=== PATIENT | male | born 1985 | race Caucasian/White ===

== ENCOUNTER 2019-11-22 22:32 | Emergency (ER) | payer SELFPAY ==
--- NOTE | 2019-11-22 23:02 | ER ---
Nurse's Notes [facility] Name: Caden Arteaga Jr Age: 34 yrs Sex: Male : 1985 Arrival Date: 11/22/2019 Time: 22:32 Bed 23 Private MD: Diagnosis: Gingivitis and periodontal diseases Presentation: 11/22 22:38 Presenting complaint: Patient states: My gum started swelling on the upper left side on jb4 . Today it is much worse and very painful. I am also a little dizzy but that comes and goes. 22:38 Transition of care: patient was not received from another setting of care. Onset of jb4 symptoms was November 16, 2019. Risk Assessment: Do you want to hurt yourself or someone else? Patient reports no desire to harm self or others. Initial Sepsis Screen: Does the patient meet any 2 criteria? No. Patient's initial sepsis screen is negative. Does the patient have a suspected source of infection? No. Patient's initial sepsis screen is negative. Care prior to arrival: None. 22:38 Method Of Arrival: Ambulatory jb4 22:38 Acuity: NIKI 4 jb4 Historical: - Allergies: 22:44 PENICILLINS; jb4 22:44 Cabbage (Brassica oleracea); jb4 - Home Meds: 22:44 None [Active]; jb4 - PMHx: 22:44 None; jb4 - PSHx: 22:44 None; jb4 - Immunization history:: Adult Immunizations not up to date. - Social history:: Smoking status: Patient reports the use of cigarette tobacco products, smokes one pack cigarettes per day. Patient uses alcohol, occasionally. street drugs, marijuana. - Ebola Screening: : No symptoms or risks identified at this time. Screenin:47 Abuse screen: Denies threats or abuse. Nutritional screening: No deficits noted. jb4 Tuberculosis screening: No symptoms or risk factors identified. Fall Risk None identified. Assessment: 22:47 General: Appears in no apparent distress. uncomfortable, Behavior is calm, cooperative, jb4 appropriate for age. Pain: Complains of pain in left buccal mucosa Pain does not radiate. Pain currently is 10 out of 10 on a pain scale. Neuro: Level of Consciousness is awake, alert, obeys commands, Oriented to person, place, time, situation. Cardiovascular: Patient's skin is warm and dry. Respiratory: Airway is patent Respiratory effort is even, unlabored, Respiratory pattern is regular, symmetrical. GI: No signs and/or symptoms were reported involving the gastrointestinal system. : No signs and/or symptoms were reported regarding the genitourinary system. EENT: No signs and/or symptoms were reported regarding the EENT system. Derm: Skin is intact, Skin is pink, warm \T\ dry. Musculoskeletal: Circulation, motion, and sensation intact. Range of motion: intact in all extremities. Vital Signs: 22:44 BP 128 / 87; Pulse 80; Resp 16; Temp 97.4; Pulse Ox 97% on R/A; Weight 79.38 kg (R); jb4 Height 5 ft. 10 in. (177.80 cm) (R); Pain 10/10; 22:44 Body Mass Index 25.11 (79.38 kg, 177.80 cm) jb4 ED Course: 22:32 Patient arrived in ED. ag3 22:35 Hiren Hammonds RN is Primary Nurse. jb4 22:37 Giorgi Jung MD is Attending Physician. tw4 22:44 Triage completed. jb4 22:44 Arm band placed on left wrist. jb4 22:47 Patient has correct armband on for positive identification. Bed in low position. Call jb4 light in reach. Side rails up X 1. Pulse ox on. Sitter at bedside. 22:47 No provider procedures requiring assistance completed. Patient did not have IV access jb4 during this emergency room visit. Administered Medications: No medications were administered Outcome: 22:47 Medical screen evaluation completed per provider. 4 22:47 Condition: stable 22:47 Following a medical screening exam, the patient was provided information regarding alternative care sites and resources available per registration personnel. 23:01 Discharge ordered by . tw4 23:02 Patient left the ED. mw2 Signatures: Hiren Hammonds, VANESSA RN [facility] Giorgi Jung MD MD 4 Beni Blackwood 2 Nicole Mathews 3
[2019-11-23 04:49] VITALS: BP 128/87; TEMP 97.4; O2SAT 97
--- NOTE | 2019-11-23 23:02 | EDPHYS ---
Physician Documentation [facility] Name: Caden Arteaga Jr Age: 34 yrs Sex: Male : 1985 Arrival Date: 11/22/2019 Time: 22:32 Bed 23 Private MD: ED Physician Giorgi Jung HPI: 11/22 23:02 This 34 yrs old Male presents to ER via Ambulatory with complaints of SWOLLEN tw4 GUMS. 23:02 The patient presents with redness. The problem is located in the upper left second tw4 molar and upper left third molar. Onset: The symptoms/episode began/occurred today. Duration: The symptoms are continuous, and are unchanged since they started. Modifying factors: The symptoms are alleviated by nothing, the symptoms are aggravated by nothing. The patient has not experienced similar symptoms in the past. Historical: - Allergies: 22:44 PENICILLINS; jb4 22:44 Cabbage (Brassica oleracea); jb4 - Home Meds: 22:44 None [Active]; jb4 - PMHx: 22:44 None; jb4 - PSHx: 22:44 None; jb4 - Immunization history:: Adult Immunizations not up to date. - Social history:: Smoking status: Patient reports the use of cigarette tobacco products, smokes one pack cigarettes per day. Patient uses alcohol, occasionally. street drugs, marijuana. - Ebola Screening: : No symptoms or risks identified at this time. ROS: 23:02 Constitutional: Negative for fever, chills, and weight loss, Eyes: Negative for injury, tw4 pain, redness, and discharge, Cardiovascular: Negative for chest pain, palpitations, and edema, Respiratory: Negative for shortness of breath, cough, wheezing, and pleuritic chest pain, Abdomen/GI: Negative for abdominal pain, nausea, vomiting, diarrhea, and constipation. 23:02 ENT: Positive for Gum pain Exam: 23:02 Constitutional: This is a well developed, well nourished patient who is awake, alert, tw4 and in no acute distress. Head/Face: Normocephalic, atraumatic. Eyes: Pupils equal round and reactive to light, extra-ocular motions intact. Lids and lashes normal. Conjunctiva and sclera are non-icteric and not injected. Cornea within normal limits. Periorbital areas with no swelling, redness, or edema. Cardiovascular: Regular rate and rhythm with a normal S1 and S2. No gallops, murmurs, or rubs. Normal PMI, no JVD. No pulse deficits. Respiratory: Lungs have equal breath sounds bilaterally, clear to auscultation and percussion. No rales, rhonchi or wheezes noted. No increased work of breathing, no retractions or nasal flaring. Abdomen/GI: Soft, non-tender, with normal bowel sounds. No distension or tympany. No guarding or rebound. No evidence of tenderness throughout. 23:02 ENT: Mouth: Gums: reddened, swollen, on the left buccal mucosa. Vital Signs: 22:44 BP 128 / 87; Pulse 80; Resp 16; Temp 97.4; Pulse Ox 97% on R/A; Weight 79.38 kg (R); jb4 Height 5 ft. 10 in. (177.80 cm) (R); Pain 10/10; 22:44 Body Mass Index 25.11 (79.38 kg, 177.80 cm) jb4 MDM: 22:59 Patient medically screened. tw4 23:06 Differential diagnosis: dental caries, gingivitis. Data reviewed: vital signs, nurses tw4 notes. Counseling: I had a detailed discussion with the patient and/or guardian regarding: the historical points, exam findings, and any diagnostic results supporting the discharge/admit diagnosis. Medical screen evaluation [facility]. [facility]. Administered Medications: No medications were administered Disposition: 11/22/19 23:01 Discharged to Home. Impression: Gingivitis and periodontal diseases. - Condition is Stable. - Medication Reconciliation Form, Thank You Letter, Antibiotic Education, Prescription Opioid Use form. - Follow up: Private Physician; When: Upon discharge from the Emergency Department; Reason: Recheck today's complaints, Continuance of care. - Problem is new. - Symptoms have improved. Signatures: Hiren Hammonds RN RN jb4 Giorgi Jung MD MD tw4 Beni Blackwood mw2 Corrections: (The following items were deleted from the chart) 23:02 23:01 11/22/2019 23:01 Discharged to Home. Impression: Gingivitis and periodontal mw2 diseases. Condition is Stable. Forms are Medication Reconciliation Form, Thank You Letter, Antibiotic Education, Prescription Opioid Use. Follow up: Private Physician; When: Upon discharge from the Emergency Department; Reason: Recheck today's complaints, Continuance of care. Problem is new. Symptoms have improved. tw4
== END 2019-11-22 23:02 | disposition home or self-care (01) ==
LOC: ER 22:32
DX: K05.10 Chronic gingivitis, plaque induced (principal); K05.6 Periodontal disease, unspecified; F17.210 Nicotine dependence, cigarettes, uncomplicated; Z88.0 Allergy status to penicillin; Z91.018 Allergy to other foods
CPT/HCPCS: 99284

== ENCOUNTER 2023-04-12 07:00 | Emergency (ER) | payer SELFPAY ==
--- OUTSIDE RECORDS SUMMARY | 2023-04-12 07:03 | XMS REPORT | Continuity of Care Document ---
:1985 Author Organization [facility] t Address [address] [place] [address] [address] [place] [address] Care Team Providers Name Role Phone Pcp, Patient Does Not Have A Primary Care Physician +[id number] KIRTI MORRIS Attending Clinician Unavailable Kirti Morris DO Attending Clinician TORIBIO Attending Clinician Unavailable Kameron Armstrong Attending Clinician Kameron JOHNSON Attending Clinician Unavailable TORIBIO Admitting Clinician Unavailable Problems Condition Condition Condition Status Onset Resolution Last Treating Co mments Source Name Details Category Date Date Treatment Clinician Date Bipolar Bipolar Disease Active Univers affect, affect, ity of depressed depressed [facility] Allergies, Adverse Reactions, Alerts Allergy Allergy Status Severity Reaction(s) Onset Inactive Treating Comm ents Source Name Type Date Date Clinician Penicill Propensi Active Hives Univer s ins ty to 07-09 ity of adverse 00:00: [place] reaction 00 Medical s Branch PENICILL Drug Active Hives Univers INS Class 07-09 ity of 00:00: [place] 00 Medical Branch Penicill Propensi Active Hives Univer s ins ty to 07-09 ity of adverse 00:00: [place] reaction 00 Medical s Branch Aspirin Propensi Active Other - See Severe Un ab ty to comments 11-06 nose ity of adverse 00:00: bleeds. [place] reaction Medical s Branch ASPIRIN DRUG Active Other-Cmnt Unive rs INGREDI 11-06 ity of 00:00: [place] 00 Medical Branch Social History Social Habit Start Date Stop Date Quantity Comments Source Exposure to Not sure [facility] SARS-CoV-2 (event) Medica l [place] Sex Assigned At [birth year] [facility] 00:00:00 00:00:00 Medical Branch Smoking Status Start Date Stop Date Source Tobacco smoking consumption [facility] Medical unknown Branch Medications Ordered Filled Start Stop Current Ordering Indication Dosage Frequency Signature Comments Components Source Medication Medication Date Date Medication? Clinician (SIG) Name Name ketorolac No 30mg 30 mg, Unive rs (TORADOL) 04-11 Slow IV ity of injection 13:30: 12:53 Push, [place] 30 mg 00 :00 ONCE, 1 Medical dose, On Branch [place] 04/11/23 at 0830, Routine NaCl 0.9% No 1000mL at 999 Uni vers (NS) bolus 04-11 mL/hr, ity of infusion 13:30: 14:43 1,000 mL, [place] as 1,000 mL 00 :00 IV Medical Infusion, [place] ONCE, 1 dose, On [place] 04/11/23 at 0830, MARSHA diphenhydrA No 25mg 25 mg, Uni vers MINE 04-11 Slow IV ity of (BENADRYL) 12:45: 12:53 Push, [place] injection 00 :00 ONCE, 1 Medical 25 mg dose, On Branch [place] 04/11/23 at 0745, STAT metoclopram No 10mg 10 mg, Uni vers eulalia HCl 04-11 Slow IV ity of (REGLAN) 12:45: 12:53 [place], [place] injection 00 :00 ONCE, 1 Medical 10 mg dose, On Branch [place] 04/11/23 at 0745, MARSHA clindamycin No 900mg 900 mg, IV Univers (CLEOCIN) 04-19 Piggyback, ity of injection 02:45: 01:47 ONCE, 1 [place] 900 mg 00 :00 dose, [place] Medical 04/18/20 at Branch 2145, MARSHA
Re ason for Anti-Infec tive: Documented Infection< br>Documen huy Infection Site: Skin / Soft Tissue
Duration of Therapy: 10 days
Re stricted use approved by: [employer] PROVIDER mupirocin 2 2019-0 Yes [id number] Apply to Univers % ointment 6-18 affected ity o f 00:00: areas BID. [place] 00 Also apply Medical to inside Branch of each nare twice daily x 5 days. mupirocin 2 2019-0 Yes [id number] Apply to Univers % ointment 6-18 affected ity o f 00:00: areas BID. [place] 00 Also apply Medical to inside Branch of each nare twice daily x 5 days. clindamycin 2020- No [id number] 300mg Take 2 Univers 150 mg 18 -29 capsules ity of capsule 00:00: 04:59 by mouth 4 [place] as 00 :00 (four) Medical times Branch daily for 10 days. cyclobenzap Yes 10mg Take 1 Univ ers rine 10 mg 5-02 tablet by ity of tablet 00:00: mouth 3 00 (three) Medical times Branch daily. ibuprofen Yes 600mg Take 1 Unive rs 600 mg 5-02 tablet by ity of tablet 00:00: mouth [place] 00 every 6 Medical (six) Branch hours as needed for Pain (scale 4-6). cyclobenzap Yes 10mg Take 1 Univ ers rine 10 mg 5-02 tablet by ity of tablet 00:00: mouth 3 00 (three) Medical times Branch daily. ibuprofen Yes 600mg Take 1 Unive rs 600 mg 5-02 tablet by ity of tablet 00:00: mouth [place] 00 every 6 Medical (six) Branch hours as needed for Pain (scale 4-6). sulfamethox 2016-11 Yes 1{tbl} Take 1 Un ab azole-trime 1-19 tablet by ity of thoprim 00:00: mouth [place] 800-160 mg 00 every 12 Medic al per tablet (twelve) Branc h hours. traMADOL 2016-11 Yes 50mg Take 1 Univers (ULTRAM) 50 1-19 tablet by ity of mg tablet 00:00: mouth [place] 00 every 6 Medical (six) Branch hours as needed for Pain (scale 4-6). sulfamethox 2016-11 Yes 1{tbl} Take 1 Un ab azole-trime 1-19 tablet by ity of thoprim 00:00: mouth [place] 800-160 mg 00 every 12 Medic al per tablet (twelve) Branc h hours. traMADOL 2016-11 Yes 50mg Take 1 Univers (ULTRAM) 50 1-19 tablet by ity of mg tablet 00:00: mouth [place] 00 every 6 Medical (six) Branch hours as needed for Pain (scale 4-6). famotidine Yes 40mg Take 1 Unive rs (PEPCID) 40 9-16 tablet by [place]y of mg tablet 00:00: [place] 00 bedtime. Medical Branch famotidine Yes 40mg Take 1 Unive rs (PEPCID) 40 9-16 tablet by ity of mg tablet 00:00: [place] 00 bedtime. Medical Branch Vital Signs Vital Name Observation Time Observation Value Comments Source Systolic blood 2023-04-11 14:40:00 119 mm[Hg] Univer sity [facility] Diastolic blood 2023-04-11 14:40:00 74 mm[Hg] Unive rsity [facility] Heart rate 2023-04-11 14:40:00 90 /min [facility] Respiratory rate 2023-04-11 14:40:00 16 /min [facility] Oxygen saturation in 2023-04-11 14:40:00 92 /min [facility] Arterial blood by [facility] Pulse oximetry Branch Body temperature 2023-04-11 12:37:00 37.61 Flavia [facility] Body height 2023-04-11 12:37:00 177.8 cm [facility] Body weight 2023-04-11 12:37:00 65.772 kg [facility] BMI 2023-04-11 12:37:00 20.81 kg/m2 [facility] Systolic blood 2020-04-19 01:10:00 136 mm[Hg] Univer sity [facility] Diastolic blood 2020-04-19 01:10:00 80 mm[Hg] Unive rsity of [facility] Heart rate 2020-04-19 01:10:00 79 /min [facility] Body temperature 2020-04-19 01:10:00 36.61 Flavia [facility] Oxygen saturation in 2020-04-19 01:10:00 98 /min [facility] Arterial blood by [facility] Pulse oximetry Branch Respiratory rate 2020-04-19 01:04:00 20 /min [facility] Body height 2020-04-19 01:04:00 177.8 cm [facility] Body weight 2020-04-19 01:04:00 74.844 kg [facility] BMI 2020-04-19 01:04:00 23.68 kg/m2 [facility] Procedures Procedure Date / Time Performed Performing Clinician Sour e CONSENT/REFUSAL FOR 2023-04-11 12:35:43 Doctor Unassigned, No Un [facility] DIAGNOSIS AND Name [facility] TREATMENT Encounters Start End Encounter Admission Attending Care Care Encounter Source Date/Time Date/Time Type Type Clinicians Facility Department ID 2023-04-11 2023-04-11 Emergency X ARTURO [facility] ERT [id number] Univers 07:38:00 09:43:00 KIRTI patricia [facility] 2023-04-11 2023-04-[address] [facility] [id number] Univers 07:38:00 09:43:00 Kirti [id number] [id number] [facility] [id number] [address] 2022-05-12 2022-05-12 Outpatient [place] [id number] [place] 04:30:00 04:30:00 HANA [id number] da [facility] 2020-04-18 2020-04-18 Emergency Kameron Johnson MTSHAHEEN [id number] Univers 20:06:28 21:36:00 Bibiana Mcdonough [id number] i ty [facility] [id number] [facility] [id number] [address] 2020-04-18 2020-04-18 Emergency X Kameron JOHNSON [facility] ERT [id number] Univers 20:06:28 20:06:28 ity [facility] Results This patient has no known results.
[2023-04-12] MEDS ORDERED: METOCLOPRAMIDE 10 MG/2mL INJ ONE (07:24)
[2023-04-12] MEDS ORDERED: Ringers Lactate 1,000 ML IV ONE (07:24)
[2023-04-12] MEDS ORDERED: dexAMETHasone 10 MG/ML VIAL ONE (07:25)
[2023-04-12] MEDS ORDERED: DIPHENHYDRAMINE 50 MG/ML VIAL ONE (07:25)
[2023-04-12] MEDS ORDERED: KETOROLAC 30 MG/ML INJ ONE (07:27)
[2023-04-12 08:43] LABS: SARS-CoV-2 Antigen Rapid Res Negative (Negative)
--- NOTE | 2023-04-12 08:59 | EDPHYS ---
Physician Documentation [facility] Name: Caden Arteaga Jr Age: 37 yrs Sex: Male : 1985 Arrival Date: 04/12/2023 Time: 07:00 Bed 12 Private MD: ED Physician Hoang Escalante HPI: 04/12 07:12 This 37 yrs old Male presents to ER via Ambulatory with complaints of Vomiting, ms3 Migraine. 07:12 37-year-old male with no past medical history presents for migraine that began on ms3 Wednesday. Patient states he was seen at [facility] on April [address] of his head was performed and IV medications were given. Patient states that the pain is a 10/10 located in bilateral temples. Patient endorses nausea and vomiting. Patient states headache is worse with coughing. Patient denies alleviating factors.. Historical: - Allergies: 07:08 Cabbage (Brassica oleracea); jl7 07:08 PENICILLINS; jl7 - Home Meds: 07:08 None [Active]; jl7 - PMHx: 07:08 None; jl7 - PSHx: 07:08 None; jl7 - Immunization history:: Adult Immunizations unknown. - Social history:: Smoking status: Patient reports the use of cigarette tobacco products. ROS: 07:12 Constitutional: Negative for fever, and chills. Neck: Negative for injury, pain, and ms3 swelling, Cardiovascular: Negative for chest pain, and palpitations. Respiratory: Negative for shortness of breath, cough, wheezing, and pleuritic chest pain, Abdomen/GI: Negative for abdominal pain, nausea, vomiting, diarrhea, and constipation, MS/Extremity: Negative for injury and deformity, Skin: Negative for injury, rash, and discoloration. 07:12 Neuro: Positive for headache. 07:12 All other systems are negative. Exam: 07:12 Constitutional: This is a well developed, well nourished patient who is awake, alert, ms3 and in no acute distress. Head/Face: Normocephalic, atraumatic. ENT: Nares patent. No nasal discharge, no septal abnormalities noted. Tympanic membranes are normal and external auditory canals are clear. Oropharynx with no redness, swelling, or masses, exudates, or evidence of obstruction, uvula midline. Mucous membranes moist. Neck: Trachea midline, no cervical lymphadenopathy. Supple, full range of motion without nuchal rigidity, or vertebral point tenderness. No Meningismus. Chest/axilla: Normal chest wall appearance and motion. Nontender with no deformity. Cardiovascular: Regular rate and rhythm with a normal S1 and S2. No gallops, murmurs, or rubs. Normal PMI, no JVD. No pulse deficits. Respiratory: Lungs have equal breath sounds bilaterally, clear to auscultation and percussion. No rales, rhonchi or wheezes noted. No increased work of breathing, no retractions or nasal flaring. Abdomen/GI: Soft, non-tender, with normal bowel sounds. No distension or tympany. No guarding or rebound. No evidence of tenderness throughout. Skin: Warm, dry with normal turgor. Normal color with no rashes, no lesions, and no evidence of cellulitis. MS/ Extremity: Pulses equal, no cyanosis. Neurovascular intact. Full, normal range of motion. 07:12 Neuro: Orientation: to person, place, time \T\ situation. Mentation: is normal, Memory: is normal, Cranial nerves: CN I not tested, CN II- XII are normal as tested, Cerebellar function: is grossly normal, Motor: is normal, Sensation: no obvious gross deficits, Gait: is steady, at a normal pace, without difficulty. Vital Signs: 07:04 BP 140 / 87; Pulse 106; Resp 15; Temp 97.9; Pulse Ox 96% ; Pain 10/10; jl7 09:07 BP 123 / 78; Pulse 99; Resp 16; Pulse Ox 95% on R/A; eh3 07:04 Pain Scale: Adult jl7 MDM: 07:08 Patient medically screened. ms3 07:12 Differential diagnosis: Migraine vs Dehydration vs Tension Headache vs COVID. ms3 08:58 Data reviewed: vital signs, nurses notes, lab test result(s), and as a result, I will ms3 discharge patient. I considered the following discharge prescriptions or medication management in the emergency department Medications were administered in the Emergency Department. See MAR. External Records Reviewed: Outside ED record: [facility] Anika from 04/11/[address] Head without contrast performed, Reglan, Toradol, and Benadryl given.. Counseling: I had a detailed discussion with the patient and/or guardian regarding: the historical points, exam findings, and any diagnostic results supporting the discharge/admit diagnosis, lab results, the need for outpatient follow up, to return to the emergency department if symptoms worsen or persist or if there are any questions or concerns that arise at home. Response to treatment: the patient's symptoms have markedly improved after treatment, and as a result, I will discharge patient. Special discussion: I discussed with the patient/guardian in detail that at this point there is no indication for admission to the hospital. It is understood, however, that if the symptoms persist or worsen the patient needs to return immediately for re-evaluation. ED course: On reevaluation patient is alert and oriented x4, no apparent distress, nontoxic-appearing, neurologically intact. Patient to follow-up with Dr. Guzman in 2 to 3 days. Patient understands and agrees with plan. All questions were answered. Return precautions discussed include worsening symptoms, or any other concerns.. 04/12 08:11 Order name: SARS-COV-2 Antigen Rapid; Complete Time: 08:45 bd Administered Medications: 07:36 Drug: metoCLOPramide IVP 10 mg Route: IVP; Site: right forearm; jl7 07:36 Drug: diphenhydrAMINE IVP 25 mg Route: IVP; Site: right forearm; jl7 07:36 Drug: Decadron - Dexamethasone IVP 10 mg Route: IVP; Site: right forearm; jl7 07:36 Drug: Lactated Ringers Solution IV 1000 ml Route: IV; Rate: bolus; Site: right forearm; jl7 07:36 Drug: Ketorolac IVP 10 mg 10 mg Route: IVP; Site: right forearm; jl7 Disposition Summary: 04/12/23 08:57 Discharge Ordered Location: Home ms3 Condition: Stable ms3 Diagnosis - Headache ms3 Followup: ms3 - With: Jewel Guzman MD - When: 2 - 3 days - Reason: Recheck today's complaints Discharge Instructions: - Discharge Summary Sheet ms3 - General Headache Without Cause ms3 Forms: - Medication Reconciliation Form ms3 - Thank You Letter ms3 - Antibiotic Education ms3 - Prescription Opioid Use ms3 - Work release form eh3 Prescriptions: - Fioricet 50-300-40 mg Oral capsule - take 1 capsule by ORAL route every 6 hours as needed for pain; 15 capsule; ms3 Refills: 0, Product Selection Permitted Signatures: Dispatcher [employer] Vaishnavi Darling, RN RN jl7 Hoang Escalante DO DO ms3 Corrections: (The following items were deleted from the chart) 08:30 07:17 SARS-COV-2 RT PCR+[id number] ordered. NICOLETTE EDMS
--- NOTE | 2023-04-12 08:59 | ER ---
Nurse's Notes [facility] Name: Caden Arteaga Jr Age: 37 yrs Sex: Male : 1985 Arrival Date: 04/12/2023 Time: 07:00 Bed 12 Private MD: Diagnosis: Headache Presentation: 04/12 07:04 Chief complaint: Patient states: Migraine x 3 days, N/V, seen at [place] [address] scan. Coronavirus screen: At this time, the client does not indicate any symptoms associated with coronavirus-19. Ebola Screen: No symptoms or risks identified at this time. Initial Sepsis Screen: Does the patient meet any 2 criteria? No. Patient's initial sepsis screen is negative. Does the patient have a suspected source of infection? No. Patient's initial sepsis screen is negative. Risk Assessment: Do you want to hurt yourself or someone else? Patient reports no desire to harm self or others. Onset of symptoms was April 09, 2023. 07:04 Method Of Arrival: Ambulatory [facility] 07:04 Acuity: NIKI 3 7 Triage Assessment: 07:08 General: Appears in no apparent distress. uncomfortable, Behavior is calm, cooperative, jl7 appropriate for age. Pain: Complains of pain in right confucianist and left confucianist Pain currently is 10 out of 10 on a pain scale. GI: Reports nausea, vomiting. Historical: - Allergies: 07:08 Cabbage (Brassica oleracea); jl7 07:08 PENICILLINS; 7 - Home Meds: 07:08 None [Active]; jl7 - PMHx: 07:08 None; 7 - PSHx: 07:08 None; jl7 - Immunization history:: Adult Immunizations unknown. - Social history:: Smoking status: Patient reports the use of cigarette tobacco products. Screenin:07 [facility] ED Fall Risk Assessment (Adult) Score/Fall Risk Level 0 - 2 = Low Risk. Abuse eh3 screen: Denies threats or abuse. Denies injuries from another. Nutritional screening: No deficits noted. Tuberculosis screening: No symptoms or risk factors identified. Vital Signs: 07:04 BP 140 / 87; Pulse 106; Resp 15; Temp 97.9; Pulse Ox 96% ; Pain 10/10; jl7 09:07 BP 123 / 78; Pulse 99; Resp 16; Pulse Ox 95% on R/A; eh3 07:04 Pain Scale: Adult jl7 ED Course: 07:02 Patient arrived in ED. rg4 07:04 Hoang Escalante DO is Attending Physician. ms3 07:08 Triage completed. jl7 07:08 Arm band placed on. jl7 07:14 Vaishnavi Shirley, RN is Primary Nurse. jl7 07:32 Missed attempt(s): 20 gauge in right forearm. Bleeding controlled, band aid applied, jl7 catheter tip intact. 07:35 Inserted saline lock: 22 gauge in right forearm, using aseptic technique. jl7 08:57 Jewel Guzman MD is Referral Physician. ms3 09:08 Patient has correct armband on for positive identification. eh3 09:08 No provider procedures requiring assistance completed. IV discontinued, intact, eh3 bleeding controlled, No redness/swelling at site. Pressure dressing applied. Administered Medications: 07:36 Drug: metoCLOPramide IVP 10 mg Route: IVP; Site: right forearm; jl7 07:36 Drug: diphenhydrAMINE IVP 25 mg Route: IVP; Site: right forearm; jl7 07:36 Drug: Decadron - Dexamethasone IVP 10 mg Route: IVP; Site: right forearm; jl7 07:36 Drug: Lactated Ringers Solution IV 1000 ml Route: IV; Rate: bolus; Site: right forearm; jl7 07:36 Drug: Ketorolac IVP 10 mg 10 mg Route: IVP; Site: right forearm; jl7 Medication: 09:08 VIS not applicable for this client. 3 Outcome: 08:57 Discharge ordered by . ms3 09:08 Discharged to home ambulatory. eh3 09:08 Condition: stable 09:08 Discharge instructions given to patient, Instructed on discharge instructions, follow up and referral plans. medication usage, Demonstrated understanding of instructions, follow-up care, medications, Prescriptions given X 1. 09:11 Patient left the ED. eh3 Signatures: Aubree Centeno rg4 Vaishnavi Shirley, VANESSA RN jl7 Hoang Escalante DO DO ms3 Irene Hernandes RN RN eh3 Corrections: (The following items were deleted from the chart) 07:37 07:36 Decadron - Dexamethasone IVP 10 mg IVP in left antecubital jl7 jl7 07:37 07:36 Ketorolac IVP 10 mg 10 mg IVP in left forearm [facility] jl7 07:38 07:36 diphenhydrAMINE IVP 25 mg IVP in left forearm [facility] 07:38 07:36 metoCLOPramide IVP 10 mg IVP in left forearm [facility] jl7
[2023-04-12 09:26] VITALS: TEMP 97.9
[2023-04-12 09:32] VITALS: BP 123/78; O2SAT 95
== END 2023-04-12 09:11 | disposition home or self-care (01) ==
LOC: ER 07:00
DX: R51.9 Headache, unspecified (principal); R11.2 Nausea with vomiting, unspecified
CPT/HCPCS: 36415; 87811; 96374; 96375; 99284; J1100; J1200; J2765; J7120

== ENCOUNTER → 2023-11-22 | Emergency (ER) | payer OTHER, SELFPAY ==
[~2023-11-22] MED LIST: KETOROLAC 30 MG/ML INJ ONE
--- OUTSIDE RECORDS SUMMARY | 2023-11-22 09:10 | XMS REPORT | Continuity of Care Document ---
Author Name Unknown Address [address] [place] [address] [facility] thconnect Address [address] [place] [address] Care Team Providers Care Product Technology Scientist Name Role Phone PCP, PATIENT DOES NOT HAVE A Primary Care Physic tavon Unavailable DAPHNEY PENA Attending Clinician Unavailable Kirti Morris DO Attending Clinician [phone] KIRTI MORRIS Attending Clinician Unavailab shahida ROONEY Attending Clinician Unavailable Kameron Armstrong Attending Clinician Kameron JOHNSON Attending Clinician Unavailable DAPHNEY PENA Admitting Clinician Unavailable KIRTI MORRIS Admitting Clinician Unavailab shahida ROONEY Admitting Clinician Unavailable Problems Condition Name Condition Details Condition Category Status Onset Date Resolution Date Last Treatment Date Treating Clinician Comments Source Bipolar affect, depressed Bipolar affect, depressed Disease Active [facility] Allergies, Adverse Reactions, Alerts Allergy Name Allergy Type Status Severity Reaction(s) Onset Date Inactive Date Treating Clinician Comments Source Penicill ins Propensi ty to adverse reaction s Active Hives 07-09 00:00: 00 [facility] PENICILL INS Drug Class Active Hives 07-09 00:00: 00 [facility] Penicill ins Propensi ty to adverse reaction s Active Hives 07-09 00:00: 00 [facility] Aspirin Propensi ty to adverse reaction s Active Other - See comments 11-06 00:00: 00 Severe nose bleeds. [facility] ASPIRIN DRUG INGREDI Active Other-Cmnt 11-06 00:00: 00 [facility] Social History Social Habit Start Date Stop Date Quantity Comments Source Exposure to SARS-CoV-2 (event) Not sure [facility] Sex Assigned At 1985 00:00:00 1985 00:00:00 [facility] Smoking Status Start Date Stop Date Source Tobacco smoking consumption unknown [facility] Medications Ordered Medication Name Filled Medication Name Start Date Stop Date Current Medication? Ordering Clinician Indication Dosage Frequency Signature (SIG) Comments Components Source ketorolac (TORADOL) injection 30 mg 04-11 13:30: 00 04-11 12:53 :00 No 30mg 30 mg, Slow IV Push, ONCE, 1 dose, On 04/11/23 at 0830, Routine [facility] NaCl 0.9% (NS) bolus infusion 1,000 mL 04-11 13:30: 00 04-11 14:43 :00 No 1000mL at 999 mL/hr, 1,000 mL, IV Infusion, ONCE, 1 dose, On 04/11/23 at 0830, MARSHA [facility] diphenhydrA MINE (BENADRYL) injection 25 mg 04-11 12:45: 00 04-11 12:53 :00 No 25mg 25 mg, Slow IV Push, ONCE, 1 dose, On 04/11/23 at 0745, STAT [facility] metoclopram eulalia HCl (REGLAN) injection 10 mg 04-11 12:45: 00 04-11 12:53 :00 No 10mg 10 mg, Slow IV Push, ONCE, 1 dose, On 04/11/23 at 0745, MARSHA [facility] clindamycin (CLEOCIN) injection 900 mg 04-19 02:45: 00 04-19 01:47 :00 No 900mg 900 mg, IV Piggyback, ONCE, 1 dose, [facility] 04/18/20 at 2145, MARSHA
Re ason for Anti-Infec tive: Documented Infection< br>Documen huy Infection Site: Skin / Soft Tissue
Duration of Therapy: 10 days
Re stricted use approved by: ADC PROVIDER [facility] mupirocin 2 % ointment 04-18 00:00: 00 Yes [id number] Apply to affected areas BID. Also apply to inside of each nare twice daily x 5 days. [facility] mupirocin 2 % ointment 04-18 00:00: 00 Yes [id number] Apply to affected areas BID. Also apply to inside of each nare twice daily x 5 days. [facility] clindamycin 150 mg capsule 04-18 00:00: 00 04-29 04:59 :00 No [id number] 300mg Take 2 capsules by mouth 4 (four) times daily for 10 days. [facility] cyclobenzap rine 10 mg tablet 03-02 00:00: 00 Yes 10mg Take 1 tablet by mouth 3 (three) times daily. [facility] ibuprofen 600 mg tablet 03-02 00:00: 00 Yes 600mg Take 1 tablet by mouth every 6 (six) hours as needed for Pain (scale 4-6). [facility] cyclobenzap rine 10 mg tablet 03-02 00:00: 00 Yes 10mg Take 1 tablet by mouth 3 (three) times daily. [facility] ibuprofen 600 mg tablet 03-02 00:00: 00 Yes 600mg Take 1 tablet by mouth every 6 (six) hours as needed for Pain (scale 4-6). [facility] sulfamethox azole-trime thoprim 800-160 mg per tablet 2016-11 00:00: 00 Yes 1{tbl} Take 1 tablet by mouth every 12 (twelve) hours. [facility] traMADOL (ULTRAM) 50 mg tablet 2016-11 00:00: 00 Yes 50mg Take 1 tablet by mouth every 6 (six) hours as needed for Pain (scale 4-6). [facility] sulfamethox azole-trime thoprim 800-160 mg per tablet 2016-11 00:00: 00 Yes 1{tbl} Take 1 tablet by mouth every 12 (twelve) hours. [facility] traMADOL (ULTRAM) 50 mg tablet 2016-11 00:00: 00 Yes 50mg Take 1 tablet by mouth every 6 (six) hours as needed for Pain (scale 4-6). [facility] famotidine (PEPCID) 40 mg tablet 07-17 00:00: 00 Yes 40mg Take 1 tablet by mouth at bedtime. [facility] famotidine (PEPCID) 40 mg tablet 07-17 00:00: 00 Yes 40mg Take 1 tablet by mouth at bedtime. [facility] Vital Signs Vital Name Observation Time Observation Value Comments S ource Systolic blood pressure 2023-04-11 14:40:00 119 mm[Hg] [facility] Diastolic blood pressure 2023-04-11 14:40:00 74 mm[Hg] [facility] Heart rate 2023-04-11 14:40:00 90 /min [facility] Respiratory rate 2023-04-11 14:40:00 16 /min [facility] Oxygen saturation in Arterial blood by Pulse oximetry 2023-04-11 14:40:00 92 /min [facility] Body temperature 2023-04-11 12:37:00 37.61 Flavia [facility] Body height 2023-04-11 12:37:00 177.8 cm [facility] Body weight 2023-04-11 12:37:00 65.772 kg [facility] BMI 2023-04-11 12:37:00 20.81 kg/m2 [facility] Systolic blood pressure 2020-04-19 01:10:00 136 mm[Hg] [facility] Diastolic blood pressure 2020-04-19 01:10:00 80 mm[Hg] [facility] Heart rate 2020-04-19 01:10:00 79 /min [facility] Body temperature 2020-04-19 01:10:00 36.61 Flavia [facility] Oxygen saturation in Arterial blood by Pulse oximetry 2020-04-19 01:10:00 98 /min [facility] Respiratory rate 2020-04-19 01:04:00 20 /min [facility] Body height 2020-04-19 01:04:00 177.8 cm [facility] Body weight 2020-04-19 01:04:00 74.844 kg [facility] BMI 2020-04-19 01:04:00 23.68 kg/m2 [facility] Procedures Procedure Date / Time Performed Performing Clinicia n Source CONSENT/REFUSAL FOR DIAGNOSIS AND TREATMENT 2023-04-11 12:35:43 Doctor Unassigned, [place] [facility] Encounters Start Date/Time End Date/Time Encounter Type Admission Type Attending [facility] Care Facility Care Department Encounter ID Source 2023-07-20 20:16:00 2023-07-20 22:53:00 Emergency X DAPHNEY PENA [facility] ERT [id number] [facility] 2023-04-11 07:38:00 2023-04-11 09:43:00 Emergency Kirti Morris [facility] [id number] [facility] 2023-04-11 07:38:00 2023-04-11 09:43:00 Emergency KIRTI MORGAN [facility] ERT [id number] [facility] 2022-05-12 04:30:00 2022-05-12 04:30:00 Outpatient AMBREEN_BENOIT PATRICIA [facility] [id number] [place] [facility] 2020-04-18 20:06:28 2020-04-18 21:36:00 Emergency Kameron Johnson [facility] [id number] [facility] 2020-04-18 20:06:28 2020-04-18 20:06:28 Emergency X Kameron JOHNSON [facility] ERT [id number] [facility]
--- NOTE | 2023-11-22 09:59 | RAD REPORT ---
EXAM DESCRIPTION: CT - Head Brain Wo Cont - 11/22/2023 9:37 am CLINICAL HISTORY: head injury Trauma, head injury COMPARISON: No comparisons TECHNIQUE: All CT scans are performed using dose optimization technique as appropriate and may inclu de automated exposure control or mA/KV adjustment according to patient size. FINDINGS: No intracranial hemorrhage, hydrocephalus or extra-axial fluid collection.No areas of brai n edema or evidence of midline shift. The paranasal sinuses and mastoids are clear. The calvarium is intact. IMPRESSION: No acute intracranial abnormality.
--- NOTE | 2023-11-22 10:12 | EDPHYS ---
Physician Documentation [facility] Name: Caden Arteaga Jr Age: 38 yrs Sex: Male : 1985 Arrival Date: 11/22/2023 Time: 09:06 Bed 11 Private MD: ED Physician Rito Carpenter HPI: 11/22 09:23 This 38 yrs old Male presents to ER via Unassigned with complaints of Head ec2 Injury-Adult, Headache. 09:23 Patient arrives today for evaluation of a head injury. He states that yesterday he was ec2 working on a car and subsequently slipped and fell and hit his head on the bumper. States that he has been confused and drowsy since that time. Reports no LOC, denies blood thinners, denies neck pain.. Historical: - Allergies: 09:56 Cabbage (Brassica oleracea); iw 09:56 PENICILLINS; iw - Home Meds: 09:56 None [Active]; iw - PMHx: 09:56 None; iw ROS: 09:23 Constitutional: as per hpi ec2 Exam: 09:23 Constitutional: GEN: NAD Head: atraumatic Eyes: EOMI Ears: External ears are ec2 normal. CV: regular rate LUNGS: no respiratory distress ABD: non-distended SKIN: no evidence of rashes MSK: no evidence of trauma, no C-spine TTP NEURO: moves all extremities equally, cranial nerves II through XII intact, strength intact all 4 extremities Vital Signs: 09:55 BP 135 / 79; Pulse 120; Resp 18; Temp 97.9; Pulse Ox 100% on R/A; Pain 8/10; iw 09:55 Pain Scale: Adult iw MDM: 09:15 Patient medically screened. ec2 09:23 ED course: Patient arrives today for evaluation of a head injury. Examination ec2 remarkable for neuro intact individual is otherwise in no acute distress. Will obtain CT scan of the head to evaluate for intracranial pathology. Suspect concussion causing his symptoms.. 10:10 Data reviewed: vital signs. ED course: CT scan of the head shows no acute intracranial ec2 process. Patient noted to be tachycardic, denies any chest pain, difficulty breathing, denies any vomiting, denies any signs of dehydration, low suspicion for ACS, low suspicion for PE given lack of respiratory symptoms. Will discharge home and have him follow-up with his primary care doctor for further workup and testing regarding his tachycardia.. 11/22 09:23 Order name: CT Head Brain wo Cont; Complete Time: 10:09 ec2 Administered Medications: 10:03 Drug: Ketorolac IM 30 mg IM once Route: IM; Site: left deltoid; iw 10:35 Follow up: Response: No adverse reaction iw Disposition Summary: 11/22/23 10:11 Discharge Ordered Notes: Location: Home ec2 Condition: Stable ec2 Diagnosis - Concussion without loss of consciousness ec2 Followup: ec2 - With: Private Physician - When: - Reason: Recheck today's complaints Discharge Instructions: - Discharge Summary Sheet ec2 - Concussion, Adult, [id number] ec2 Forms: - Work release form ec2 - Medication Reconciliation Form ec2 - Thank You Letter ec2 - Antibiotic Education ec2 - Prescription Opioid Use ec2 - Patient Portal Instructions ec2 - Leadership Thank You Letter ec2 Signatures: Dispatcher [employer] Felicity Martinez RN RN iw Rito Carpenter MD MD ec2 Corrections: (The following items were deleted from the chart) 09:41 09:40 Patient medically screened. ec2 ec2
--- NOTE | 2023-11-22 10:12 | ER ---
Nurse's Notes [facility] Name: Caden Arteaga Jr Age: 38 yrs Sex: Male : 1985 Arrival Date: 11/22/2023 Time: 09:06 Bed 11 Private MD: Diagnosis: Concussion without loss of consciousness Presentation: 11/22 09:55 Chief complaint: Patient states: hit head on back of jeep yesterday, still feeling iw dizzy and weak. Coronavirus screen: At this time, the client does not indicate any symptoms associated with coronavirus-19. Ebola Screen: Patient negative for fever greater than or equal to 101.5 degrees Fahrenheit, and additional compatible Ebola Virus Disease symptoms Patient denies exposure to infectious person. Patient denies travel to an Ebola-affected area in the 21 days before illness onset. No symptoms or risks identified at this time. 09:55 Method Of Arrival: Ambulatory iw 09:55 Mechanism of Injury: resulted from. Initial Sepsis Screen: Does the patient meet any 2 iw criteria? No. Patient's initial sepsis screen is negative. Does the patient have a suspected source of infection? No. Patient's initial sepsis screen is negative. Risk Assessment: Do you want to hurt yourself or someone else? Patient reports no desire to harm self or others. 09:55 Acuity: NIKI 4 iw Historical: - Allergies: 09:56 Cabbage (Brassica oleracea); iw 09:56 PENICILLINS; iw - Home Meds: 09:56 None [Active]; iw - PMHx: 09:56 None; iw Vital Signs: 09:55 BP 135 / 79; Pulse 120; Resp 18; Temp 97.9; Pulse Ox 100% on R/A; Pain 8/10; iw 09:55 Pain Scale: Adult iw ED Course: 09:10 Patient arrived in ED. rg4 09:10 Rito Carepnter MD is Attending Physician. ec2 09:38 CT Head Brain wo Cont In Process Unspecified. EDMS 09:57 Triage completed. iw 09:57 Arm band placed on. iw 10:03 Felicity Pimentel, RN is Primary Nurse. iw Administered Medications: 10:03 Drug: Ketorolac IM 30 mg IM once Route: IM; Site: left deltoid; iw 10:35 Follow up: Response: No adverse reaction iw Outcome: 10:11 Discharge ordered by . ec2 10:47 Patient left the ED. iw Signatures: Dispatcher [employer] Felicity Martinez, VANESSA RN iw Aubree Centeno rg4 Rito Carpenter MD MD ec2 Corrections: (The following items were deleted from the chart) 09:57 09:55 Pulse 120bpm; Resp 18bpm; Pulse Ox 100% RA; Temp 97.9F; Pain 8/10, Adult; iw iw
[2023-11-22 11:01] VITALS: BP 135/79; TEMP 97.9; O2SAT 100
== END ==
LOC: ER 09:06
DX: S06.0X0A Concussion without loss of consciousness, initial encounter (principal); Z88.0 Allergy status to penicillin; Z91.018 Allergy to other foods
CPT/HCPCS: 70450; 96372; 99283